=== PATIENT | female | born 1995 | race Caucasian/White ===

== ENCOUNTER 2024-06-09 03:13 | Emergency (ER) | payer MEDICAID, SELFPAY ==
--- NOTE | ~2024-06-09 | CT_ITS ---
EXAMINATION: CT ABDOMEN AND PELVIS WITH CONTRAST CLINICAL INFORMATION: Right lower quadrant pain. COMPARISON: None available. TECHNIQUE: Multidetector volumetric images were obtained from the superior aspect of the liver through the pubic symphysis following administration 75 mL of Omnipaque 350 intravenous contrast. Sagittal and coronal reformatted images were obtained on the technologist's workstation. Oral contrast: No This CT examination was performed using dose optimization techniques as appropriate, variously including the following: *Automated exposure control *Adjustment of mA and/or kV according to patient size (this includes techniques or standardized protocols for targeted exams where dose is matched to indication/reason for exam; i.e. extremities or head) *Use of iterative reconstruction technique DLP: 356 mGy-cm FINDINGS: LUNG BASES: The visualized lung bases are unremarkable. LIVER, GALLBLADDER, AND BILIARY TREE: The liver is normal in size, shape, and attenuation. No focal hepatic lesion or biliary ductal dilatation is present. The gallbladder is unremarkable with no evidence of radiopaque gallstones, gallbladder wall thickening, or obvious pericholecystic inflammatory changes. PANCREAS: Unremarkable. SPLEEN: Unremarkable. ADRENAL GLANDS: Unremarkable. KIDNEYS AND URETERS: A 2.5 mm x 2 mm calculus is present at the right ureterovesicular junction. Moderate diffuse right ureterectasis and moderate right hydronephrosis is present. Mildly delayed right nephrogram enhancement is noted. No additional urolithiasis visualized. No perinephric fluid collections or perinephric inflammatory changes identified. BLADDER: Unremarkable. GASTROINTESTINAL TRACT: The appendix is not definitively visualized. A tubular focus of gas which may represent gas within a normal appendix is noted on series 3 image 51). No intestinal dilatation or mural thickening noted. Trace free intraperitoneal fluid is present in the pelvic cul-de-sac and minimal trace free intraperitoneal fluid is present in the right lateral gutter inferiorly. No free intraperitoneal gas visualized. ABDOMINAL WALL: No significant hernia is appreciated. LYMPH NODES: Normal. VASCULAR: Unremarkable. PELVIC VISCERA: Normal appearance of the uterus. No adnexal lesions. OSSEOUS STRUCTURES: Unremarkable. CT/CT abdomen pelvis w IV con IMPRESSION: *Single obstructing 2.5 mm x 2 mm calculus at the right ureterovesicular junction associated with moderate right hydronephrosis and moderate right ureterectasis. No additional urolithiasis. No perinephric fluid collections. Fleischner guidelines were followed. Electronically signed by: Luke Alexandre MD 06/09/2024 05:10 AM EDT RP
[2024-06-09 03:22] VITALS: BP 103/55; PULSE 51; RESP 18; TEMP 36.5; O2SAT 100; BMI 22.2
[2024-06-09 04:10] LABS: Basophils Absolute Auto 0.1 X10*3/uL (0.0-0.2); Basophils Percent Auto 0.7 % (0-2); Eosinophils Absolute Auto 0.1 X10*3/uL (0.0-0.4); Eosinophils Percent Auto 0.5 % (0-4); Hematocrit 37.3 % (37.0-47.0); Hemoglobin 12.6 g/dl (12.0-16.0); Imm Gran Abs Auto 0.02 X10*3/uL (0.00-0.03); Imm Gran Pct Auto 0.2 % (0.0-0.4); Lymphocytes Absolute Auto 1.7 X10*3/uL (1.2-4.9); Lymphocytes Percent Auto 15.9 % (20-40); MANUAL DIFF FLAG NO; Mean Corpuscular HGB Conc 33.8 g/dl (31.0-35.0); Mean Corpuscular Hemoglobin 29.6 pg (27.0-33.0); Mean Corpuscular Volume 87.8 fL (80.0-98.0); Mean Platelet Volume 10.1 fL (9.4-12.3); Monocytes Absolute Auto 0.6 X10*3/uL (0.1-1.2); Monocytes Percent Auto 5.1 % (2-11); Neutrophils Absolute Auto 8.4 x10*3/uL (2.0-8.3); Neutrophils Percent Auto 77.6 % (45-73); Platelet Count 220 X10*3/uL (160-400); Red Blood Count 4.25 X10*6/uL (4.20-5.50); Red Cell Distribution Width 11.9 % (11.0-16.0); White Blood Count 10.8 X10*3/uL (4.8-10.8)
--- NOTE | 2024-06-09 04:15 | ED.ABDPAIN ---
HPI - Abdominal Pain General Chief Complaint: Abdominal Pain Stated Complaint: stomach pain/abd pain Time Seen by Provider: 06/09/24 04:02 Source: patient Mode of arrival: ambulatory Limitations: no limitations History of Present Illness ED Provider: rafa MERA narrative: Patient no significant past medical history woke up from sleep with increased pain in the right lower abdomen with nausea and vomiting vomited twice no history of kidney stone no history of ovarian cyst she believes she is not no urinary symptoms no vaginal bleed no fever no chills no urinary symptoms Related Data Previous Rx's ?Medication ?Instructions ?Recorded cefuroxime axetil 250 mg tablet 250 mg PO BID 7 days #14 tabs 06/09/24 ibuprofen 600 mg tablet 600 mg PO Q6H PRN fever or pain 06/09/24 #30 tabs tamsulosin 0.4 mg capsule (Flomax) 0.4 mg PO BEDTIME #7 caps 06/09/24 Allergies Allergy/AdvReac Type Severity Reaction Status Date / Time No Known Allergies Allergy Verified 06/09/24 03:29 Review of Systems Review of Systems Yes all other systems are reviewed and are negative [facility] Social History Social History Advance Directives: No Advance Directives Information Provided: No Patient : No Physical Exam ED Vital Signs: Vital Signs - 24 hr 06/09/24 03:22 06/09/24 04:39 06/09/24 05:19 Temperature 97.7 F 98.0 F Pulse Rate 51 58 Respiratory Rate 18 16 16 Blood Pressure 103/55 L 98/45 L Pulse Oximetry 100 100 Oxygen Delivery Method Room Air Room Air BMI result Body Mass Index 22.2 Appearance: Alert. Oriented X3. In moderate distress Eyes: PERRLA, No Nystagmus ENT: Pharynx normal. Oral Mucosa moist Neck: Normal inspection. Neck supple. CVS: Normal heart rate and rhythm. Pulses normal. Respiratory: No respiratory distress. Equal air entry bilateral, no wheezing/rales/rhonchi Abdomen: Soft and nontender. Bowel sounds are present, no mass palpable,R CVA tenderness, right suprapubic tenderness Skin: Skin warm and dry. Normal skin color. Normal skin turgor. Extremities: No lower extremity edema. No calf tenderness Neuro: Oriented X 3. Medical Decision Making Medical Decision Making [facility] Narrative: Patient with acute onset of right lower quadrant right flank pain CT scan showed 2 mm UVJ stone with mild hydronephrosis patient feeling much better during stay in the ER will discharge patient home on pain medication Flomax advised to urologist. Patient also noticed to have UTI with nitrite positive will give cefuroxime received 1 g of Rocephin in the ER Differential Diagnosis Differential Diagnoses: The differential diagnosis associated with the presentation includes Lab Data [facility] Lab Attestation statement: I reviewed the patient's lab results. 06/09/24 04:05 06/09/24 04:05 Labs: Lab Results 06/09/24 06/09/24 Range/Units 04:05 05:33 WBC 10.8 (4.8-10.8) X10*3/uL RBC 4.25 (4.20-5.50) X10*6/uL Hgb 12.6 (12.0-16.0) g/dl Hct 37.3 (37.0-47.0) % MCV 87.8 (80.0-98.0) fL MCH 29.6 (27.0-33.0) pg MCHC 33.8 (31.0-35.0) g/dl RDW 11.9 (11.0-16.0) % Plt Count 220 (160-400) X10*3/uL MPV 10.1 (9.4-12.3) fL Immature Gran % (Auto) 0.2 (0.0-0.4) % Neut % (Auto) 77.6 H (45-73) % Lymph % (Auto) 15.9 L (20-40) % Throckmorton % (Auto) 5.1 (2-11) % Eos % (Auto) 0.5 (0-4) % Baso % (Auto) 0.7 (0-2) % Lymph # (Auto) 1.7 (1.2-4.9) X10*3/uL Throckmorton # (Auto) 0.6 (0.1-1.2) X10*3/uL Eos # (Auto) 0.1 (0.0-0.4) X10*3/uL Baso # (Auto) 0.1 (0.0-0.2) X10*3/uL Abs Immat Gran (auto) 0.02 (0.00-0.03) X10*3/uL Absolute Neuts (auto) 8.4 H (2.0-8.3) x10*3/uL Absolute Nucleated RBC 0.000 (0.0-0.012) X10*3/uL Nucleated RBC % (auto) 0.0 (0.0-0.2) /100WBC Sodium 141 (135-145) mmol/L Potassium 3.3 (3.3-5.1) mmol/L Chloride 109 H (96-108) mmol/L Carbon Dioxide 18 L (22-29) mmol/L Anion Gap 17 (12-20) BUN 15 (9-16) mg/dL Creatinine 0.78 (0.5-1.4) mg/dL Estim Creat Clear Calc 72.5 Estimated GFR > 60 Random Glucose 135 H (60-115) mg/dL Calcium 9.1 (8.4-10.2) mg/dL Total Bilirubin 0.3 (0.0-1.0) mg/dL AST 27 (5-31) U/L ALT 22 (0-31) U/L Alkaline Phosphatase 92 (39-117) U/L Total Protein 6.8 (6.5-8.0) g/dL Albumin 4.2 (3.5-5.0) g/dL Lipase 17 (8-78) U/L Beta HCG, Quant < 2 mIU/mL Urine Color Yellow Urine Appearance Clear Urine pH 6.5 (5.0-9.0) Ur Specific Collins >= 1.030 H (1.005-1.025) Urine Protein Negative (Neg-Trace) mg/dL Urine Glucose (UA) Negative (Negative) mg/dL Urine Ketones Trace (Negative) mg/dL Urine Blood Moderate (2+) H (Negative) Urine Nitrite Positive H (Negative) Ur Leukocyte Esterase Negative (Negative) Urine RBC 6-10 H (0-2) /HPF Urine WBC 0-5 (0-5) /HPF Ur Squamous Epith Cells 0-2 (0-2) /HPF Urine Bacteria 2+ (None Seen) Hyaline Casts 0-2 (0-2) /LPF Medications Administered Discontinued Medications Generic Name Dose Route Start Last Admin Trade Name Freq PRN Reason Stop Dose Admin Ceftriaxone Sodium 1 gm 06/09/24 06:03 06/09/24 06:14 Ceftriaxone Sodium 1 Gm Vial IVPUSH 06/09/24 06:04 1 gm ONCE ONE Administration Sodium Chloride 1,000 mls @ 999 mls/hr 06/09/24 04:21 06/09/24 05:40 Ns IV 06/09/24 05:21 Infused .Q1H1M ONE Infusion Iohexol 75 ml 06/09/24 05:00 06/09/24 05:01 Iohexol 350 Mg/Ml 100 Ml Infus..Btl IV 06/09/24 05:01 75 ml ONCE ONE Administration Ketorolac Tromethamine 30 mg 06/09/24 06:03 06/09/24 06:15 Ketorolac Tromethamine 30 Mg/Ml Vial IVPUSH 06/09/24 06:04 30 mg ONCE ONE Administration Morphine Sulfate 4 mg 06/09/24 04:21 06/09/24 04:39 Morphine Sulfate 4 Mg/Ml Cartridge IVPUSH 06/09/24 04:22 4 mg ONCE ONE Administration Protocol Ondansetron HCl 4 mg 06/09/24 04:21 06/09/24 04:39 Ondansetron Hcl 4 Mg/2 Ml Vial IVPUSH 06/09/24 04:22 4 mg ONCE ONE Administration Tamsulosin HCl 0.4 mg 06/09/24 06:03 06/09/24 06:15 Tamsulosin Hcl 0.4 Mg Capsule PO 06/09/24 06:04 0.4 mg ONCE ONE Administration Discharge Plan Discharge Clinical Impression: Calculus of distal right ureter, UTI (urinary tract infection) Patient Disposition: Home, Self-Care Instructions: Urinary Tract Infection in Women (DC), Low Oxalate Diet (ED), Ureteral Stones (ED) Additional Instructions: Drink plenty of fluids Take pain medication as prescribed Flomax daily till you pass the stone Follow up with urologist/PCP if not better Take antibiotic as prescribed Prescriptions: New tamsulosin [Flomax] 0.4 mg capsule 0.4 mg PO BEDTIME Qty: 7 0RF ibuprofen 600 mg tablet 600 mg PO Q6H PRN (Reason: fever or pain) Qty: 30 0RF cefuroxime axetil 250 mg tablet 250 mg PO BID 7 Days Qty: 14 0RF Referrals: Tyrone Soto MD [Physician] - 1 week Print Language: Japanese
[2024-06-09 04:32] LABS: Alanine Aminotransferase 22 U/L (0-31); Albumin Level 4.2 g/dL (3.5-5.0); Alkaline Phosphatase 92 U/L (39-117); Anion Gap 17 (12-20); Aspartate Amino Transferase 27 U/L (5-31); Bilirubin Total 0.3 mg/dL (0.0-1.0); Blood Urea Nitrogen 15 mg/dL (9-16); Calcium 9.1 mg/dL (8.4-10.2); Carbon Dioxide 18 mmol/L (22-29); Chloride 109 mmol/L (96-108); Creatinine Clr Calc Pharmacy 72.5; Estimated Glomerular Filt Rate > 60; Glucose Random 135 mg/dL (60-115); Lipase 17 U/L (8-78); Potassium 3.3 mmol/L (3.3-5.1); Sodium 141 mmol/L (135-145); Total Protein 6.8 g/dL (6.5-8.0)
[2024-06-09 04:39] VITALS: RESP 16
[2024-06-09] MEDS: ondansetron HCL 4 MG/2 ML VIAL IVPUSH (04:39)
[2024-06-09] MEDS: Morphine Sulfate 4 MG/ML CARTRIDGE IVPUSH (04:39)
[2024-06-09 04:40] LABS: HCG Quantitative < 2 mIU/mL
[2024-06-09] MEDS: 0.9 % Sodium Chloride 1,000 ML 999 ML IV (04:40)
[2024-06-09] MEDS: iohexoL 350 MG/ML 100 ML INFUS..BTL 75 ML IV (05:01)
[2024-06-09 05:19] VITALS: BP 98/45; PULSE 58; RESP 16; TEMP 36.7; O2SAT 100
--- NOTE | 2024-06-09 05:20 | MHC.EDTECH ---
Rounded and introduced self to patient,vitals taken,BP is low 98/45,RN made aware,patient is unable to give a urine sample at this time,visitor at bedside call giles in reach
[2024-06-09 05:40] LABS: Appearance Urine Clear; Color Urine Yellow; Glucose Urine UA Negative (Negative); Leukocyte Esterase Urine Negative (Negative); Nitrite Urine Positive (Negative); PH 6.5 (5.0-9.0); Specific Gravity - Urine >= 1.030 (1.005-1.025); UMIC TRIGGER UACC YES; Urine Blood Moderate (2+) (Negative); Urine Ketones Trace mg/dL (Negative); Urine Protein Negative (Neg-Trace)
[2024-06-09 05:42] LABS: Bacteria Urine 2+ (None Seen); Hyaline Casts Urine 0-2 /LPF (0-2); Squamous Epithelial Cell Urine 0-2 /HPF (0-2); UACC Culture Trigger YES; WBC Urine 0-5 /HPF (0-5)
--- NOTE | 2024-06-09 06:04 | PC.NURSE ---
Per Dr Patel, blood draw for lactic and blood cultures is not needed at this time.
[2024-06-09] MEDS: cefTRIAXone sodium 1 GM VIAL IVPUSH (06:14)
[2024-06-09] MEDS: Ketorolac Tromethamine 30 MG/ML VIAL IVPUSH (06:15)
[2024-06-09] MEDS: Tamsulosin HCL 0.4 MG CAPSULE PO (06:15)
[2024-06-09 07:08] VITALS: BP 100/47; PULSE 51; RESP 16; TEMP 36.8; O2SAT 99
== END 2024-06-09 07:09 | disposition home or self-care (01) ==
PROVIDERS: Emergency Provider Internal Medicine
DX: N13.2 Hydronephrosis with renal and ureteral calculous obstruction (principal); N39.0 Urinary tract infection, site not specified; R10.31 Right lower quadrant pain; Z87.442 Personal history of urinary calculi
CPT/HCPCS: 36415; 74177; 80053; 81001; 83690; 84702; 85025; 87086; 87088; 87186; 96361; 96374; 96375; 99284; 99285; J0696; J1885; J2270; J2405; Q9967

== ENCOUNTER 2024-10-11 08:53 | Outpatient (REF) | payer SELFPAY ==
--- OUTSIDE RECORDS SUMMARY | 2024-10-11 09:49 | XMS_ITS | Clinical Summary ---
Author Organization [employer] Address [address] [facility] [address] [place] [address] Care Team Providers Care Autism Motor Specialist Name Role Phone Unavailable Primary Care Provider Unavailabl e Allergies No known active allergies Medications ibuprofen 400 MG tabletIndication s:Pain in periorbital region of left eye Take 1 tablet (400 mg) by mouth every 8 (eight) hours if needed for headaches or mild pain. 30 tablet 11/10/19 25 Active Encounters Date Type Department Care Team Description 10/10/2024 6:00 PM EST Office Visit [facility] [address] [place] [phone] Romeo Ernandez MD Pain in periorbital region of left eye (Primary Dx); Encounter for surveillance of contraceptives, unspecified contraceptive 10/10/2024 Telephone [facility] [address] [place] [phone] Romeo Ernandez MD from Last 3 Months Social History Tobacco Use Types Packs/Day Years Used Date Smoking Tobacco: Never Passive Smoke Exposure: Never Smokeless Tobacco: Never Tobacco Cessation:Counseling Given: Not Answered Alcohol Use Standard Drinks/Week Comments Never 0 (1 standard drink = 0.6 oz pur e alcohol) Comments No Sex and Gender Information Value Date Recorded Sex Assigned at Female 10/10/2024 4:01 PM EST Legal Sex Female 2:01 PM EST Gender Identity Female 10/10/2024 4:01 PM EST Sexual Orientation Straight 10/10/2024 4: 01 PM EST Last Filed Vital Signs Vital Sign Reading Time Taken Comments Blood Pressure 108/50 10/10/2024 5:43 PM EST Pulse - - Temperature 36.2 ??C (97.2 ??F) 10/10/2024 5:43 PM ES T Respiratory Rate 18 10/10/2024 5:43 PM EST Oxygen Saturation - - Inhaled Oxygen Concentration - - Weight 51.8 kg (114 lb 3.2 oz) 10/10/2024 5:43 P M EST Height 149.9 cm (4' 11 ) 10/10/2024 5:43 PM EST Body Mass Index 23.07 10/10/2024 5:43 PM EST Plan of Treatment Health Maintenance Due Date Last Done Comments Depression Screening 1995 HIV Screening 1995 SDOH Screening 1995 Alcohol/Substance Use Screening 2007 Family Planning (PISQ) 2010 Hepatitis C Screening 2013 DTaP/Tdap/Td Vaccines (1 - Tdap) 2014 Hepatitis B Vaccines (1 of 3 - 19+ 3-dose series) 2014 Pap Smear 02/01/2016 COVID-19 Vaccine (1 - 2023-2 5 season) 2024 Influenza Vaccine (#1) 2024 Tobacco Screening 10/10/2025 10/10/2024 Zoster Vaccines (1 of 2) 2045 RSV Patients and Pa tients Aged 60 years or older (1 - 1-dose 75+ series) 2070 HIB Vaccines Aged Out No longer eligi ble based on patient's age to complete this topic HPV Vaccines Aged Out No longer eligi ble based on patient's age to complete this topic Hepatitis A Vaccines Aged Out No long er eligible based on patient's age to complete this topic IPV Vaccines Aged Out No longer eligi ble based on patient's age to complete this topic Meningococcal Vaccine Aged Out No cuco franklin eligible based on patient's age to complete this topic Pneumococcal Vaccine: Pediat rics (0 to 5 Years) and At-Risk Patients (6 to 49) Years) Aged Out No longer elig ible based on patient's age to complete this topic RSV under 20 months Aged Out No longe r eligible based on patient's age to complete this topic Rotavirus Vaccines Aged Out No longer eligible based on patient's age to complete this topic Insurance [employer] FULL
--- OUTSIDE RECORDS SUMMARY | 2024-10-11 09:49 | XMS_ITS | Encounter Summary ---
Author Organization [employer] Address [address] [facility] [address] [place] [address] Care Team Providers Care Life Cycle Assessment Analyst Name Role Phone Unavailable Primary Care Provider Unavailabl e Encounter Details Date Type Department Care Team (Late st Contact Info) Description 10/10/2024 Telephone [facility] [address] [place] [address] Romeo Ernandez MD [address] [place] [address] Social History Tobacco Use Types Packs/Day Years Used Date Smoking Tobacco: Never Passive Smoke Exposure: Never Smokeless Tobacco: Never Alcohol Use Standard Drinks/Week Comments Never 0 (1 standard drink = 0.6 oz pur e alcohol) Comments No Sex and Gender Information Value Date Recorded Sex Assigned at Female 10/10/2024 4:01 PM EST Legal Sex Female 2:01 PM EST Gender Identity Female 10/10/2024 4:01 PM EST Sexual Orientation Straight 10/10/2024 4: 01 PM EST documented as of this encounter Miscellaneous Notes * Telephone Encounter - Herman Rodríguez - 10/11/2024 9:13 AM EST Patient added to [facility] New Patient wait list as 10-11-2024 * Telephone Encounter - Romeo Ernandez MD - 10/10/2024 8:39 PM EST New PCP appointment request. documented in this encounter Plan of Treatment Not on file documented as of this encounter Visit Diagnoses Not on filedocumented in this encounter
--- OUTSIDE RECORDS SUMMARY | 2024-10-11 09:49 | XMS_ITS | Encounter Summary ---
Author Organization [employer] Address [address] [facility] [address] [place] [address] Care Team Providers Care Color Checker Name Role Phone Unavailable Primary Care Provider Unavailabl e Reason for Referral * Consultation (Routine) - Authorized Specialty Diagnoses / Procedures Referred By Contaubree t Referred To Contact Midwifery Diagnoses Encounter for surveillance of contraceptives, unspecified contraceptive Romeo Ernandez MD [address] [place] [phone] Phone: tel: fax: Nina Guzman CNM [address] [place] [phone] Phone: tel: fax: Referral ID Status Reason Start Date Expiration Date Visits Requested Visits Authorized [id number] Authorized Consult and Treat 10/10/2024 10/10/2025 1 1 * Consultation (Routine) - Authorized Specialty Diagnoses / Procedures Referred By Jodi ahmadi Referred To Contact Optometry Diagnoses Pain in periorbital region of left eye Romeo Ernandez MD [address] [place] [phone] Phone: tel: fax: [facility] [address] [place] [address] Phone: tel: fax: Referral ID Status Reason Start Date Expiration Date Visits Requested Visits Authorized [id number] Authorized Consult and Treat 10/10/2024 10/10/2025 1 1 Encounter Details Date Type Department Care Team (Latest Contact Info) Description 10/10/2024 6:00 PM EST Office Visit [facility] [address] [place] [phone] Romeo Ernandez MD [address] [place] [address] Pain in periorbital region of left eye (Primary Dx); Encounter for surveillance of contraceptives, unspecified contraceptive Social History Tobacco Use Types Packs/Day Years [...] 4:01 PM EST Sexual Orientation Straight 10/10/2024 4 :01 PM EST documented as of this encounter Last Filed Vital Signs Vital Sign Reading [...] Mass Index 23.07 10/10/2024 5:43 PM EST documented in this encounter Progress Notes * Romeo Ernandez MD - 10/10/2024 6:00 PM EST Subjective History was provided by the patient. Idania Dudley is a 29 y.o. female NEW PATIENT who presents for evaluation of intermittent left-sided periocular discomfort for 2 months. Some light sensitivity. Symptoms typically lasting 3-4 hours at night. Has not tried any medications for this issue. Symptoms do not occur daily. Denies anyvision change. Denies any underlying health concerns. Has not seen a medical provider >3 years since moving from [facility]. Denies any focal weakness. Denies F/C/N/V/D. Denies CP/SOB/MCMANUS. LMP was 4 weeks ago. Has a contraceptive implant (Nexplanon?) placed 5 years ago. [id number] (9-year-old child). Understands her implant needs to be switched. Has been tolerating it well and would likethe same method. FHx of diabetes (mother). Currently works at [employer]. Objective Vitals: 10/10/24 1743 BP: 108/50 BP Location: Left arm Patient Position: Sitting BP Cuff Size: Adult Resp: 18 Temp: 97.2 ??F (36.2 ??C) TempSrc: Oral Weight: 114 lb 3.2 oz (51.8 kg) Height: 4' 11 (1.499 m) Physical Exam Vitals reviewed. Constitutional: Appearance: Normal appearance. She is normal weight. HENT: Head: Normocephalic and atraumatic. Right Ear: Tympanic membrane, ear canal and external ear normal. Left Ear: Tympanic membrane, ear canal and external ear normal. Nose: Nose normal. Mouth/Throat: Mouth: Mucous membranes are dry. Pharynx: Oropharynx is clear. Eyes: General: No scleral icterus. Right eye: No discharge. Left eye: No discharge. Extraocular Movements: Extraocular movements intact. Conjunctiva/sclera: Conjunctivae normal. Pupils: Pupils are equal, round, and reactive to light. Comments: No papilledema (non-dilated exam) Cardiovascular: Rate and Rhythm: Normal rate and regular rhythm. Heart sounds: Normal heart sounds. Pulmonary: Effort: Pulmonary effort is normal. Breath sounds: Normal breath sounds. Musculoskeletal: General: Normal range of motion. Cervical back: Normal range of motion and neck supple. Skin: General: Skin is warm and dry. Neurological: General: No focal deficit present. Mental Status: She is alert and oriented to person, place, and time. Mental status is at baseline. Cranial Nerves: No cranial nerve deficit. Sensory: No sensory deficit. Motor: No weakness. Coordination: Coordination normal. Gait: Gait normal. Deep Tendon Reflexes: Reflexes normal. Psychiatric: Mood and Affect: Mood normal. Behavior: Behavior normal. Thought Content: Thought content normal. Judgment: Judgment normal. Diagnoses and all orders for this visit: Pain in periorbital region of left eye (Primary) - Referral to [facility]; Future - ibuprofen 400 MG tablet; Take 1 tablet (400 mg) by mouth every 8 (eight) hours if needed for headaches or mild pain. - CBC auto differential; Future - Basic Metabolic Panel; Future - TSH W/Reflex to FT4; Future Encounter for surveillance of contraceptives, unspecified contraceptive - Referral to Gynecology (Nina); Future New patient presents to [facility] with left-sided, intermittent periocular pain Non-focal, normal neurologic exam CN 2-12 grossly intact Non-dilated eye exam without papilledema Symptoms not daily, but often at night (3-4 hours) Denies any vision change Trial of Ibuprofen 400mg TID prn Potential adverse effects of the medication reviewed Will request for a new PCP appointment Will refer to Eye Care (also provided outside Optometry clinic list) Will refer to internal Gynecology for Nexplanon consultation Advised to contact the clinic if persistent or worsening symptoms Indications for UC/ER use reviewed documented in this encounter Plan of Treatment Scheduled Orders Name Type Priority Associated Diagnoses Orde r Schedule CBC auto differential Lab Routine Pain in periorbital region of left eye Expected: 10/10/2024 (Approximate), Expires: 10/10/2025 Basic Metabolic Panel Lab Routine Pain in periorbital region of left eye Expected: 10/10/2024 (Approximate), Expires: 10/10/2025 TSH W/Reflex to FT4 Lab Routine Pain in periorbital region of left eye Expected: 10/10/2024 (Approximate), Expires: 10/10/2025 Scheduled Referrals Name Type Priority Associated Diagnoses Orde r Schedule Referral to [facility] Outpatient Referral Routine Pain in periorbital region of left eye Expected: 10/10/2024 (Approximate), Expires: 10/10/2025 Referral to Gynecology (Nina) Outpatient Referral Routine Encounter for surveillance of contraceptives, unspecified contraceptive Expected: 10/10/2024 (Approximate), Expires: 10/10/2025 documented as of this encounter Visit Diagnoses Diagnosis Pain in periorbital region of left eye- Primary Encounter for surveillance of contraceptives, unspecified contraceptive documented in this encounter
[2024-10-11 11:41] LABS: MANUAL DIFF FLAG NO
[2024-10-11 11:51] LABS: Basophils Absolute Auto 0.1 X10*3/uL (0.0-0.2); Basophils Percent Auto 0.8 % (0-2); Eosinophils Absolute Auto 0.1 X10*3/uL (0.0-0.4); Eosinophils Percent Auto 1.1 % (0-4); Hematocrit 36.1 % (37.0-47.0); Hemoglobin 11.8 g/dl (12.0-16.0); Imm Gran Abs Auto 0.02 X10*3/uL (0.00-0.03); Imm Gran Pct Auto 0.3 % (0.0-0.4); Lymphocytes Absolute Auto 1.5 X10*3/uL (1.2-4.9); Lymphocytes Percent Auto 24.7 % (20-40); Mean Corpuscular HGB Conc 32.7 g/dl (31.0-35.0); Mean Corpuscular Hemoglobin 29.1 pg (27.0-33.0); Mean Corpuscular Volume 89.1 fL (80.0-98.0); Mean Platelet Volume 11.1 fL (9.4-12.3); Monocytes Absolute Auto 0.4 X10*3/uL (0.1-1.2); Monocytes Percent Auto 5.7 % (2-11); Neutrophils Absolute Auto 4.1 x10*3/uL (2.0-8.3); Neutrophils Percent Auto 67.4 % (45-73); Platelet Count 215 X10*3/uL (160-400); Red Blood Count 4.05 X10*6/uL (4.20-5.50); Red Cell Distribution Width 12.2 % (11.0-16.0); White Blood Count 6.1 X10*3/uL (4.8-10.8)
[2024-10-11 12:12] LABS: Anion Gap 9 (12-20); Blood Urea Nitrogen 12 mg/dL (9-16); Carbon Dioxide 23 mmol/L (22-29); Chloride 111 mmol/L (96-108); Estimated Glomerular Filt Rate > 60; Glucose Random 84 mg/dL (60-115); Potassium 3.9 mmol/L (3.3-5.1); Sodium 139 mmol/L (135-145)
[2024-10-11 12:28] LABS: TSH reflex Free T4 15.03 uIU/mL (0.32-4.0)
[2024-10-11 13:00] LABS: Free T4 (Free Thyroxine) 0.76 ng/dL (0.71-1.85)
== END 2024-10-11 08:54 | disposition home or self-care (01) ==
LOC: HO.HHCL 08:53
PROVIDERS: Visit Provider Family Medicine
DX: H57.12 Ocular pain, left eye (principal)
CPT/HCPCS: 36415; 80048; 84439; 84443; 85025

== ENCOUNTER 2024-12-10 16:22 | Outpatient (REF) | payer MEDICAID, SELFPAY ==
--- OUTSIDE RECORDS SUMMARY | 2024-12-10 17:40 | XMS_ITS | Clinical Summary ---
Author Organization [email or web address] Address [address] [facility] 7t [place] [address] Care Team Providers Care Clinical Liaison Name Role Phone Unavailable Primary Care Provider Unavailabl e Allergies No known active allergies Medications levothyroxine (Synthroid) 25 MCG tabletIndication s:Hypothyroidism , unspecified type Take 1 tablet (25 mcg) by mouth before breakfast. (ARMENIAN LABEL) 30 tablet 2 10/12/2024 5 Active metroNIDAZOLE (Flagyl) 500 MG tablet Take 1 tablet (500 mg) by mouth 2 times daily for 7 days. 14 tablet 12/10/2024 5 Active Hospital, Clinic, or Other Facility Administered Medication Ordered Dose Route Frequency Start Date End Date Status etonogestrel-eluting 68 mg contraceptive implant 1 eachIndications:Encounter for removal and reinsertion of etonogestrel implant 1 each [place] Once 11/12/2024 11/12/2024 E nded Encounters Date Type Department Care Team Description 12/10/2024 9:30 AM EDT Procedure Visit [address] [address] Nina Guzman CNM Cervical cancer screening (Primary Dx); Checking subdermal contraceptive; Pelvic pain; BV (bacterial vaginosis); Screening examination for venereal disease 12/10/2024 Travel 12/06/[address] [address] Nina Guzman CNM Chart Prep 11/12/2024 10:15 AM EDT Office Visit [address] [address] Nina Guzman CNM Encounter for removal and reinsertion of etonogestrel implant (Primary Dx) 11/12/2024 Travel 11/06/[address] [address] Yolanda Hoang, RF TECHNICIAN 10/12/2024 Telephone [facility] [address] [place] [address] Romeo Ernandez MD 10/11/2024 Orders Only [facility] [address] [place] [address] Romeo Ernandez MD 10/10/2024 6:00 PM EST Office Visit [facility] [address] [place] [address] Romeo Ernandez MD Pain in periorbital region of left eye (Primary Dx); Encounter for surveillance of contraceptives, unspecified contraceptive 10/10/2024 Telephone [facility] [address] [place] [address] Romeo Ernandez MD from Last 3 Months [...] Sign Reading Time Taken Comments Blood Pressure 110/62 12/10/2024 9:44 AM EDT Pulse 60 12/10/2024 9:44 AM EDT Temperature 36.6 ??C (97.9 ??F) 12/10/2024 9:44 AM ED T Respiratory Rate 16 12/10/2024 9:44 AM EDT Oxygen Saturation 98% 12/10/2024 9:44 AM EDT Inhaled Oxygen Concentration - - Weight 50.8 kg (112 lb) 12/10/2024 9:44 AM EDT Height 152.5 cm (5' 0.04 ) 12/10/2024 9:44 AM ED T Body Mass Index 21.85 12/10/2024 9:44 AM EDT Plan of Treatment Upcoming Encounters Date Type Department Care Team (Late st Contact Info) Description 01/18/2025 9:00 AM EDT Office Visit [facility] OPTOMETRY [address] [place] [address] Rosanne Irizarry, OD [address] [place] [address] Health Maintenance Due Date Last Done Comments Depression Screening 1995 HIV Screening 1995 SDOH Screening 1995 Alcohol/Substance Use Screening 2007 Hepatitis C Screening 2013 DTaP/Tdap/Td Vaccines (1 - Tdap) 2014 Hepatitis B Vaccines (1 of 3 - 19+ 3-dose series) 2014 Pap Smear 02/01/2016 COVID-19 Vaccine (1 - 2023-2 5 season) 2024 Influenza Vaccine (#1) 2024 Family Planning (PISQ) 12/10/2025 12/10/2024 Tobacco Screening 12/10/2025 12/10/2024 Zoster Vaccines (1 of 2) 2045 RSV [...] on patient's age to complete this topic Procedures Procedure Name Priority Date/Time Associated Diagnosis Comments POCT WET MOUNT/DIAZ Routine 12/10/2024 10 :17 AM EDT BV (bacterial vaginosis) POCT , URINE Routine 11/12/2024 12:34 PM EDT Encounter for removal and reinsertion of etonogestrel implant KILN LOADER INSERTION/REMOVAL OF CONTRACEPTIVE CAPSULE Routine 11/12/2024 10:35 AM EDT Encounter for removal and reinsertion of etonogestrel implant T4, FREE Routine 10/11/2024 8:59 AM EST TSH W/REFLEX TO FT4 Routine 10/11/2024 8 :59 AM EST Pain in periorbital region of left eye BASIC METABOLIC PANEL Routine 10/11/2024 8:59 AM EST Pain in periorbital region of left eye CBC WITH AUTO DIFFERENTIAL Routine 10/11/2024 8:59 AM EST Pain in periorbital region of left eye from Last 3 Months Results * POCT fern test, vaginal fluid manually resulted (12/10/2024 10:17 AM EDT) DIAZ Prep Positive Comment:pH 5.5-6, pos whiff, few clue, neg trich, neg wbc, neg yeast Vaginal Fluid Vaginal structure / Unknown 12/10/2024 10:17 AM EDT Nina Guzman [facility] POINT OF CARE TEST ENTER/ EDIT ORDERABLES Final Result * POCT , urine manually resulted (11/12/2024 12:34 PM EDT) Preg Test, Ur Negative Negative, Indeterminate, None Detected, Invalid, Specimen unsatisfactory for evaluation, Weakly Positive QC Media Lot # [id number] Lot# Expiration Date [id number] Urine 11/12/2024 12:3 4 PM EDT Nina HENDRIX POINT OF CARE TEST ENTER/ EDIT ORDERABLES Final Result * Insertion/Removal of Contraceptive Capsule (11/12/2024 10:35 AM EDT) Nina Grubbs CNM - 11/12/2024 10:35 AM EDT Nina Guzman CNM ? 11/12/2024 12:39 PM Insertion/Removal of Contraceptive Capsule Date/Time: 11/12/2024 10:35 AM Performed by: Nina Guzman CNM Authorized by: Nina Guzman CNM ?? Confirmed correct patient, procedure, site, and patient consented: Yes ?? Participating Staff: ??Nina Guzman CNM Consent: ??Consent obtained: ??Verbal and written ??Consent given by: ??Patient ??Procedural risks and benefits discussed: Yes ?Patient questions answered: yes ?Patient agrees, verbalizes understanding, and wants to proceed: yes ?Educational handouts given: yes ?Instructions and paperwork completed: yes ?? Indication: ??Indication: presence of non-biodegradable drug delivery implant ?? Pre-procedure: ??Pre-procedure timeout performed: yes ?Prepped with: povidone-iodine ?Local anesthetic: 2ml 2% lidocaine. Procedure: ??Procedure: ??Removal with reinsertion ??Small stab incision was made in arm: yes ?Left/right: ??Left ??Preloaded contraceptive capsule trocar was placed subdermally: yes ?Visualization of implant was obtained: yes ?Contraceptive capsule was inserted and trocar removed: yes ?Visualization of notch in stylet and palpation of device: yes ?Palpation confirms placement by provider and patient: yes ?Site was closed with steri-strips and pressure bandage applied: yes ?? Comments: ?? Both Jadelle implants removed intact. ??New implant inserted in same site. ?? us Nina Guzman CNM IN CLINIC/BEDSIDE ORDERAB LES Final Result * (ABNORMAL) TSH W/Reflex to FT4 (10/11/2024 8:59 AM EST) TSH reflex Free T4 15.03(H) 0.32 - 4.0 uIU/mL [facility] Blood Venous blood specimen / Unknown 10/11/2024 8:59 AM EST 10/11/2024 11:41 AM EST us Romeo Ernandez MD LAB BLOOD ORDERABLES Final Resul t [facility] [address] [place] [address] [phone] * (ABNORMAL) CBC auto differential (10/11/2024 8:59 AM EST) White Blood Count 6.1 4.8 - 10.8 X10*3/uL [facility] Red Blood Count 4.05(L) 4.20 - 5.50 X10*6/uL [facility] Hemoglobin 11.8(L) 12.0 - 16.0 g/dl [facility] Hematocrit 36.1(L) 37.0 - 47.0 % [facility] Mean Corpuscular Volume 89.1 80.0 - 98.0 fL [facility] Mean Corpuscular Hemoglobin 29.1 27.0 - 33.0 pg [facility] Mean Corpuscular HGB Conc 32.7 31.0 - 35.0 g/dl [facility] Red Cell Distribution Width 12.2 11.0 - 16.0 % [facility] Platelet Count 215 160 - 400 X10*3/uL [facility] Mean Platelet Volume 11.1 9.4 - 12.3 fL [facility] Neutrophils Percent Auto 67.4 45 - 73 % [facility] Imm Gran Pct Auto 0.3 0.0 - 0.4 % [facility] Lymphocytes Percent Auto 24.7 20 - 40 % [facility] Monocytes Percent Auto 5.7 2 - 11 % [facility] Eosinophils Percent Auto 1.1 0 - 4 % [facility] Basophils Percent Auto 0.8 0 - 2 % [facility] NRBC Pct Auto 0.0 0.0 - 0.2 /100WBC [facility] Neutrophils Absolute Auto 4.1 2.0 - 8.3 x10*3/uL [facility] Imm Gran Abs Auto 0.02 0.00 - 0.03 X10*3/uL [facility] Lymphocytes Absolute Auto 1.5 1.2 - 4.9 X10*3/uL [facility] Monocytes Absolute Auto 0.4 0.1 - 1.2 X10*3/uL [facility] Eosinophils Absolute Auto 0.1 0.0 - 0.4 X10*3/uL [facility] Basophils Absolute Auto 0.1 0.0 - 0.2 X10*3/uL [facility] NRBC Abs Auto 0.000 0.0 - 0.012 X10*3/uL [facility] Blood Venous blood specimen / Unknown 10/11/2024 8:59 AM EST 10/11/2024 11:36 AM EST Romeo Ernandez MD LAB BLOOD ORDERABLES Final Resul t Performing Organization Address City/[facility]/ZIP Co de Phone Number [facility] [address] [place] [phone] * T4, Free (10/11/2024 8:59 AM EST) Pathologist [facility] Free T4 (Free Thyroxine) 0.76 0.71 - 1.85 ng/dL [facility] 10/11/2024 8:59 AM EST 10/11/2024 11:41 AM EST Romeo Ernandez MD LAB BLOOD ORDERABLES Final Resul t Performing Organization Address [facility]/ZIP Co de Phone Number [facility] [address] [place] [phone] * (ABNORMAL) Basic Metabolic Panel (10/11/2024 8:59 AM EST) Pathologist [facility] Sodium 139 135 - 145 mmol/L [facility] Potassium 3.9 3.3 - 5.1 mmol/L [facility] Chloride 111(H) 96 - 108 mmol/L [facility] Carbon Dioxide 23 22 - 29 mmol/L [facility] Anion Gap 9(L) 12 - 20 [facility] Urea Nitrogen (BUN) 12 9 - 16 mg/dL [facility] Creatinine, Serum 0.74 0.5 - 1.4 mg/dL [facility] Estimated Glomerular Filt Rate >60 [facility] Comment:Chronic Kidney Disea se: Estimated GFR < 60 mL/min/[id number] Kidney Disease: Estimated GFR < 15 mL/min/1.73m2 Glucose 84 60 - 115 mg/dL [facility] Calcium 9.0 8.4 - 10.2 mg/dL [facility] Blood Venous blood specimen / Unknown 10/11/2024 8:59 AM EST 10/11/2024 11:41 AM EST us Romeo Ernandez MD LAB BLOOD ORDERABLES Final Resul t [facility] [address] [place] [phone] from Last 3 Months Insurance [facility] HSN FULL
--- OUTSIDE RECORDS SUMMARY | 2024-12-10 17:40 | XMS_ITS | Encounter Summary ---
Author Organization [employer] Address [address] [facility] 7t [place] [address] Care Team Providers Care Corporate Events Director Name Role Phone Unavailable Primary Care Provider Unavailabl e Encounter Details Date Type Department Care Team (Latest Contact Info) Description 12/10/2024 Travel Social History Tobacco Use Types Packs/Day Years [...] PM EST documented as of this encounter Plan of Treatment Upcoming Encounters Date Type Department Care Team (Late st Contact Info) Description 01/18/2025 9:00 AM EDT Office Visit [facility] OPTOMETRY [address] [place] [address] Rosanne Irizarry, BIANCA [address] [place] [address] documented as of this encounter Visit Diagnoses Not on filedocumented in this encounter
--- OUTSIDE RECORDS SUMMARY | 2024-12-10 17:40 | XMS_ITS | Encounter Summary ---
Author Organization [employer] Address [address] [facility] [address] [place] [address] Care Team Providers Care Patternmaker Plaster [employer] Plastic Name Role Phone Unavailable Primary Care Provider Unavailabl e Reason for Referral * Imaging (Urgent) - Authorized Specialty Diagnoses / Procedures Referred By Contac t Referred To Contact Radiology Diagnoses Pelvic pain Procedures Us Pelvis complete Nina Guzman CNM [address] [place] [address] Phone: tel: fax: [address] Phone: tel: fax: Referral ID Status Reason Start Date Expiration Date V isits Requested Visits Authorized [id number] Authorized 12/10/2024 12/10/2025 1 1 * Imaging (Urgent) - Authorized Specialty Diagnoses / Procedures Referred By Contac t Referred To Contact Radiology Diagnoses Pelvic pain Procedures US Pelvis Transvaginal Nina Guzman CNM [address] [place] [address] Phone: tel: fax: [address] Phone: tel: fax: Referral ID Status Reason Start Date Expiration Date V isits Requested Visits Authorized [id number] Authorized 12/10/2024 12/10/2025 1 1 Reason for Visit * Reason Comments Gynecologic Exam Encounter Details Date Type Department Care Team (Latest Contact Info) Description 12/10/2024 9:30 AM EDT Procedure Visit [facility] [address] [place] [address] Nina Guzman CNM [address] [place] [address] Cervical cancer screening (Primary Dx); Checking subdermal contraceptive; Pelvic pain; BV (bacterial vaginosis); Screening examination for venereal disease Social History Tobacco Use Types Packs/Day Years [...] Mass Index 21.85 12/10/2024 9:44 AM EDT documented in this encounter Progress Notes * Nina Guzman CNM - 12/10/2024 9:30 AM EDT Subjective Patient ID: Idania Dudley is a 29 y.o. female who presents for pap. She has nexplanon in place, she reports irregular periods on method, she confirms she is happy with method. She has prison AMAB partner, feels safe in relationship, denies bleeding with sex, she is reporting some occasional pain with sex, agrees to pap based STI testing. She also is endorsing some discharge x last 6 months. She denies urinary sx, denies fever and chills. Kierandelkylie replaced with Nexplanon 11/2024. Here for pap. Review of Systems Constitutional: Negative for chills and fever. Genitourinary: Positive for dyspareunia, pelvic pain and vaginal discharge. Negative for decreased urine volume, flank pain, urgency, vaginal bleeding and vaginal pain. Objective BP 110/62 (BP Location: Left arm, Patient Position: Sitting, BP Cuff Size: Adult) Pulse 60 Temp97.9 ??F (36.6 ??C) (Temporal) Resp 16 Ht 5' 0.04 (1.525 m) Wt 112 lb (50.8 kg) LMP 12/10/2024 (Exact Date) SpO2 98% BMI 21.85 kg/m?? Physical Exam Exam conducted with a wood cabinet finisher present (Nina Guzman CNM). Constitutional: Appearance: Normal appearance. Chest: Breasts: Right: Normal. No swelling, bleeding, inverted nipple, mass, nipple discharge, skin change or tenderness. Left: Normal. No swelling, bleeding, inverted nipple, mass, nipple discharge, skin change or tenderness. Abdominal: Tenderness: There is abdominal tenderness. There is guarding. Comments: Tenderness upon palpation in LLQ/lower left pelvic area Genitourinary: Vagina: No foreign body. Vaginal discharge present. No erythema, tenderness, bleeding, lesions or prolapsed vaginal resendez. Cervix: Friability present. No cervical motion tenderness, discharge, lesion, erythema, cervical bleeding or eversion. Uterus: Normal. Not deviated, not enlarged, not fixed, not tender and no uterine prolapse. Adnexa: Right adnexa normal and left adnexa normal. Right: No mass, tenderness or fullness. Left: No mass, tenderness or fullness. Lymphadenopathy: Upper Body: Right upper body: No supraclavicular or axillary adenopathy. Left upper body: No supraclavicular or axillary adenopathy. Skin: Comments: +nexplanon implant palpated in left arm Neurological: Mental Status: She is alert. Psychiatric: Mood and Affect: Mood normal. Behavior: Behavior normal. Assessment/Plan Problem List Items Addressed This Visit None Visit Diagnoses Cervical cancer screening - Primary Relevant Orders Pap Smear Pap performed today with STI testing add on Plan to f/u with results, if normal Pap w/ cotest in 3 years. Checking subdermal contraceptive Implant palpated today in L arm on exam Pt is happy with method and would like to continue with method Remove/replace no later than 5 years from insertion date. Pelvic pain Relevant Orders US Pelvis Transvaginal Us Pelvis complete Neg CMT, Neg adnexal tenderness, unremarkeable bimanual exam. Speculum exam showed white vaginal discharge. Based on tenderness upon external palpation in LLQ/pelvic area plan to obtain pelvic U/S. BV (bacterial vaginosis) Relevant Orders POCT fern test, vaginal fluid manually resulted (Completed) Positive whiff test, clue cell versus artifact on microscopy, basic vaginal pH Plan to treat empirically for BV with flagyl x 7 days. Advised pt to RTC if symptoms do not improve. Screening examination for venereal disease Relevant Orders STI testing add on (NG, CT, Trich) See above Plan to obtain pelvic U/S and treat empirically for BV Advised pt to RTC for new or worsening sx. [facility] WIRE PULLER Attestation WIRE PULLER Resident Attestation: Patient was seen and evaluated by Fely Ritter CNP, in collaboration with Nina Guzman CNM who has reviewed my assessment and plan. I, Nina Guzman CNM, have reviewed the resident's note and agree with the assessment & plan of care as documented above. documented in this encounter Plan of Treatment Upcoming Encounters Date Type Department Care Team (Late st Contact Info) Description 01/18/2025 9:00 AM EDT Office Visit [facility] OPTOMETRY [address] [place] [address] Rosanne Irizarry, OD [address] [place] [address] Scheduled Orders Name Type Priority Associated Diagnoses Orde r Schedule Pap Smear Pathology and Cytology Routine Cervical cancer screening Ordered: 12/10/2024 US Pelvis Transvaginal Imaging Urgent Pelvic pain Expected: 12/10/2024, Expires: 12/10/2025 Us Pelvis complete Imaging Urgent Pelvic pain Expected: 12/10/2024, Expires: 12/10/2025 STI testing add on (NG, CT, Trich) Pathology and Cytology Routine Screening examination for venereal disease Ordered: 12/10/2024 documented as of this encounter Procedures Procedure Name Priority Date/Time Associated Diagnosis Comments POCT WET MOUNT/DIAZ Routine 12/10/2024 10 :17 AM EDT BV (bacterial vaginosis) documented in this encounter Results * POCT fern test, vaginal fluid manually resulted (12/10/2024 10:17 AM EDT) DIAZ Prep Positive Comment:pH 5.5-6, pos whiff, few clue, neg trich, neg wbc, neg yeast Vaginal Fluid Vaginal structure / Unknown 12/10/2024 10:17 AM EDT Nina Guzman CNM POINT OF CARE TEST ENTER/ EDIT ORDERABLES Final Result documented in this encounter Visit Diagnoses Diagnosis Cervical cancer screening- Primary Screening for malignant neoplasm of the cervix Checking subdermal contraceptive Surveillance of previously prescribed implantable subdermal contraceptive Pelvic pain BV (bacterial vaginosis) Unspecified vaginitis and vulvovaginitis Screening examination for venereal disease documented in this encounter
--- OUTSIDE RECORDS SUMMARY | 2024-12-10 17:40 | XMS_ITS | Encounter Summary ---
Author Organization [employer] Address [address] [facility] [address] [place] [address] Care Team Providers Care Ledger Clerk Name Role Phone Unavailable Primary Care Provider Unavailabl e Reason for Visit * Reason Onset Date Comments Chart Prep 12/06/2024 Encounter Details Date Type Department Care Team (Late st Contact Info) Description 12/06/2024 Telephone [facility] [address] [place] [address] Nina Guzman CNM [address] [place] [address] Chart Prep Social History Tobacco Use Types Packs/Day Years [...] encounter Miscellaneous Notes * Telephone Encounter - Nae Denney [place] - 12/06/2024 9:25 AM EDT Chart Prep Labs: not applicable Images: not applicable Vaccines due: Covid Due, Tdap Due, Hep B Due, and Flu Due Referrals: Not Applicable Screenings: PAP and HIV screening Overdue care gaps: Sbirt, SDOH, PQ9, GAD7, Disability , and Oral Health documented in this encounter Plan of Treatment Upcoming Encounters Date Type Department Care Team (Late Contact Info) Description 01/18/2025 9:00 AM EDT Office Visit [facility] OPTOMETRY [address] [place] [address] Rosanne Irizarry, OD [address] [place] [address] documented as of this encounter Visit Diagnoses Not on filedocumented in this encounter
[2024-12-12 12:38] LABS: C. trachomatis RNA TMA NOT DETECTED (NOT DETECTED); N. gonorrhoeae RNA TMA NOT DETECTED (NOT DETECTED)
[2024-12-12 13:54] LABS: Trichomonas (NAAT) NOT DETECTED (NOT DETECTED)
== END 2024-12-10 16:23 | disposition home or self-care (01) ==
LOC: HO.HHCLNP 16:22
PROVIDERS: Visit Provider Advanced Practice Midwife
DX: Z12.4 Encounter for screening for malignant neoplasm of cervix (principal)
CPT/HCPCS: 87491; 87591; 87661; 88175